=== PATIENT | male | born 1975 | race Caucasian/White ===

== ENCOUNTER 2021-02-26 14:05 | Emergency (ER) | payer OTHER, MEDICAID ==
[~2021-02-26 14:05] MED LIST: CATAPRES0.2 MG PO; CYMBALTA60 MG PO; INDERAL TAB 1010 MG PO; LIPITOR TAB 2020 MG PO
[2021-02-26 15:52] LABS: HEMOGLOBIN 16.5 gm/dl (14.0-17.5); RED BLOOD COUNT 4.99 M/UL (4.20-5.50); WHITE BLOOD COUNT 11.5 K/UL (4.5-11.0)
[2021-02-26 16:17] LABS: BUN/CREATININE RATIO 18 (0-10)
[2021-02-26] MEDS ORDERED: NAPROSYN500 MG PO (17:19)
[2021-02-26] MEDS ORDERED: CYCLOBENZAPRINE10 MG PO (17:19)
== END 2021-02-26 17:40 | disposition home or self-care (01) ==
LOC: ER1 14:05
PROVIDERS: Physician Assistant
DX: S20.212A Contusion of left front wall of thorax, initial encounter (principal); I10 Essential (primary) hypertension; F17.200 Nicotine dependence, unspecified, uncomplicated; E78.5 Hyperlipidemia, unspecified; W22.8XXA Striking against or struck by other objects, initial encounter
CPT/HCPCS: 71111; 71260; 80053; 83690; 85025; 99284; Q9967

== ENCOUNTER → 2021-03-16 | Outpatient (CLI) | payer OTHER ==
[~2021-03-16] MED LIST changes: +CYCLOBENZAPRINE10 MG PO; +NAPROSYN500 MG PO
== END ==
LOC: RAD 13:10
DX: R07.9 Chest pain, unspecified (principal); V89.2XXA Person injured in unspecified motor-vehicle accident, traffic, initial encounter
CPT/HCPCS: 71046